=== PATIENT | male | born 1940 | race Two or more races ===

== ENCOUNTER 2024-05-06 11:18 | Inpatient (IN) | payer MEDICARE, OTHER ==
[~2024-05-06] VITALS: Ht 157.5 cm; Wt 52.6 kg
[2024-05-06 12:31] LABS: INR 1.06 (0.91-1.10); PARTIAL THROMBOPLASTIN TIME 29.6 SEC (24.3-34.3); PROTHROMBIN TIME 11.2 SECS (9.2-11.1)
[2024-05-06 12:37] LABS: CALCIUM, SERUM 8.8 mg/dL (8.5-10.1)
[2024-05-06 12:42] LABS: BASOPHILS % (AUTO) 0.4 % (0.0-2.0); EOSINOPHILS # (AUTO) 0.1 K/uL (0.0-0.7); EOSINOPHILS % (AUTO) 1.1 % (0.0-6.0); HEMATOCRIT 37 % (39-51); HEMOGLOBIN 12.1 g/dL (13.5-17.5); LACTIC ACID 1.2 mmol/L (0.4-2.0); LYMPHOCYTES # (AUTO) 0.9 K/uL (0.8-4.8); MEAN CORPUSCULAR HEMOGLOBIN 29 PG (26.0-33.0); MEAN CORPUSCULAR HGB CONC 33 g/dl (31.0-36.0); MEAN CORPUSCULAR VOLUME 88 fL (80-96); MONOCYTES # (AUTO) 0.6 K/uL (0.1-1.30); MONOCYTES % (AUTO) 6.5 % (2.0-12.0); NEUTROPHILS # (AUTO) 7.3 K/uL (1.8-8.9); PLATELET COUNT (AUTO) 295 K/uL (150-450); RED BLOOD CELL COUNT(AUTO) 4.13 MIL/uL (4.5-6.0); RED CELL DISTRIBUTION WIDTH 14.1 % (11.5-15.0); WHITE BLOOD COUNT (AUTO) 8.9 K/uL (4.3-11.0)
[2024-05-06 12:49] LABS: ALBUMIN 3.4 g/dL (3.4-5.0); BILIRUBIN,DIRECT 0.2 mg/dL (0.0-0.2); BILIRUBIN,TOTAL 0.6 mg/dL (0.2-1.0); TOTAL PROTEIN, SERUM 7.3 g/dL (6.4-8.2)
[2024-05-06] MEDS ORDERED: MAG HYDROX/AL HYDROX/SIMETH 30 ML UDC PO PRN (14:00)
[2024-05-06] MEDS ORDERED: ACETAMINOPHEN 325 MG TABLET PO PRN (14:00)
[2024-05-06] MEDS ORDERED: MAGNESIUM HYDROXIDE 30 ML UDC PO PRN (14:00)
[2024-05-06] MEDS ORDERED: Z GUARD REMEDY 4 OZ OINT TP PRN (14:00)
[2024-05-06] MEDS ORDERED: ONDANSETRON HCL/PF 4 MG/2 ML VIAL IVP PRN (14:00)
[2024-05-06 16:09] LABS: APPEARANCE,URINE CLEAR (CLEAR); BILIRUBIN,URINE NEGATIVE (NEGATIVE); BLOOD, URINE NEGATIVE Ery/uL (NEGATIVE); COLOR,URINE YELLOW (YELLOW); KETONES,URINE TRACE mg/dL (NEGATIVE); LEUKOCYTE ESTERASE ,URINE NEGATIVE (NEGATIVE); NITRITE, URINE NEGATIVE (NEGATIVE); PH,URINE 7.5 (5.0-8.0); PROTEIN,URINE NEGATIVE (NEGATIVE); UGLUCOSE NEGATIVE (NEGATIVE); UROBILINOGEN,URINE 0.2 EU/dL (0.2)
[2024-05-06 16:25] LABS: ADD URINE CULTURE NO; BACTERIA,URINE None seen /HPF (None Seen); RBC,URINE 0-2 /HPF (0-2); SQUAMOUS EPITHELIAL CELL,UR 0-2 /HPF (None Seen); WBC,URINE 0-2 /HPF (0-3)
[2024-05-06] MEDS: IV NS 0.9% 1,000 ML IV PRN (19:51)
[2024-05-06 20:00] VITALS: BP 137/80; TEMP 98.4; O2SAT 92
[2024-05-06 21:13] VITALS: BP 137/80; TEMP 98.4; O2SAT 96
[2024-05-07] VITALS: BP 132/66; TEMP 98.2; O2SAT 94
[2024-05-07 00:14] VITALS: BP 132/66; TEMP 98.2; O2SAT 94
[2024-05-07 04:00] VITALS: BP 140/72; TEMP 98.6; O2SAT 94
[2024-05-07 04:22] VITALS: BP 140/72; TEMP 98.6; O2SAT 94
[2024-05-07 07:05] LABS: BASOPHILS % (AUTO) 0.7 % (0.0-2.0); EOSINOPHILS # (AUTO) 0.3 K/uL (0.0-0.7); EOSINOPHILS % (AUTO) 4.4 % (0.0-6.0); HEMATOCRIT 31 % (39-51); HEMOGLOBIN 10.2 g/dL (13.5-17.5); LYMPHOCYTES # (AUTO) 1.1 K/uL (0.8-4.8); MEAN CORPUSCULAR HEMOGLOBIN 30 PG (26.0-33.0); MEAN CORPUSCULAR HGB CONC 34 g/dl (31.0-36.0); MEAN CORPUSCULAR VOLUME 89 fL (80-96); MONOCYTES # (AUTO) 0.5 K/uL (0.1-1.30); MONOCYTES % (AUTO) 8.7 % (2.0-12.0); NEUTROPHILS # (AUTO) 3.9 K/uL (1.8-8.9); NEUTROPHILS % (AUTO) 67.2 % (43.0-81.0); PLATELET COUNT (AUTO) 232 K/uL (150-450); RED BLOOD CELL COUNT(AUTO) 3.42 MIL/uL (4.5-6.0); RED CELL DISTRIBUTION WIDTH 13.8 % (11.5-15.0); WHITE BLOOD COUNT (AUTO) 5.8 K/uL (4.3-11.0)
[2024-05-07 08:13] LABS: CALCIUM, SERUM 8.2 mg/dL (8.5-10.1); CREATININE 0.8 mg/dL (0.6-1.3); PHOSPHORUS 3.8 mg/dL (2.5-4.9); POTASSIUM 3.7 mmol/L (3.5-5.1)
[2024-05-07] MEDS ORDERED: IBUPROFEN 600 MG TABLET PO PRN (15:00)
[2024-05-07 20:00] VITALS: BP 138/73; TEMP 98.1; O2SAT 93
[2024-05-08] VITALS: BP 102/78; TEMP 97.5; O2SAT 94
[2024-05-08 04:00] VITALS: BP 144/66; TEMP 97.7; O2SAT 96
[2024-05-08 08:00] VITALS: BP 145/73; TEMP 97.5; O2SAT 96
[2024-05-08 12:00] VITALS: BP 155/86; TEMP 98.3; O2SAT 95
[2024-05-08 16:00] VITALS: BP 130/71; TEMP 98.8; O2SAT 94
[2024-05-08 20:00] VITALS: BP 135/93; TEMP 98.4; O2SAT 93
[2024-05-09] VITALS (9 sets, daily range): BP systolic 123–143; BP diastolic 64–94; TEMP 96.9–99; O2SAT 93–97
[2024-05-09] MEDS ORDERED: IBUP-1955 PO (08:06)
[2024-05-10] VITALS: BP 143/71; TEMP 98.4; O2SAT 95
[2024-05-10 01:10] VITALS: BP 143/71; TEMP 98.4; O2SAT 95
[2024-05-10 04:00] VITALS: BP 153/71; TEMP 98.2; O2SAT 93
[2024-05-10 04:26] VITALS: BP 153/71; TEMP 98.2; O2SAT 93
[2024-05-10 08:00] VITALS: BP 147/77; TEMP 97.7; O2SAT 97
== END 2024-05-10 12:15 | DRG 557 ==
LOC: ER 11:38 → TELE 20:04 → MED 05-10 08:47
PROVIDERS: ADMIT Internal Medicine; ATTEND Internal Medicine
DX: M62.82 Rhabdomyolysis (principal); G93.41 Metabolic encephalopathy; E86.0 Dehydration; R29.6 Repeated falls; D64.9 Anemia, unspecified; W19.XXXA Unspecified fall, initial encounter; Z91.81 History of falling; Y92.9 Unspecified place or not applicable; M25.532 Pain in left wrist; M25.561 Pain in right knee; Z98.890 Other specified postprocedural states; Z91.011 Allergy to milk products
CPT/HCPCS: 36415; 70450-TC; 71045-TC; 72125-TC; 73090-TC; 73110; 73552; 73590-TC; 80048-TC; 80076-TC; 81001; 82550-TC; 83605-TC; 83735-TC; 84100-TC; 85025-TC; 85730-TC; 97110-TC; 97116-TC; 97530-TC; A4223; G0378; J7030

== ENCOUNTER 2024-05-24 22:11 | Emergency (ER) | payer MEDICARE, OTHER ==
[~2024-05-24] VITALS: Ht 167.6 cm; Wt 57.2 kg
[~2024-05-24 22:11] MED LIST: IBUP-1955 PO
[2024-05-25 05:06] VITALS: BP 126/70; TEMP 98.1; O2SAT 98
== END 2024-05-25 05:06 | disposition home or self-care (01) ==
LOC: ER 22:13
DX: M25.461 Effusion, right knee (principal)
CPT/HCPCS: 73700-TC